=== PATIENT | male | born 1975 | race Two or more races ===

== ENCOUNTER 2023-01-03 16:45 | Inpatient (IN) | payer MEDICAID, OTHER ==
[~2023-01-03] VITALS: Ht 175.3 cm; Wt 84.0 kg
[2023-01-03 18:32] LABS: Eosinophils # (auto) 0 10 ^3/uL (0-0.8); Eosinophils % (auto) 0.4 % (0.0-7.0); Hemoglobin 12.3 g/dL (13.5-17.5); Lymphocytes # (auto) 1.1 10 ^3/uL (0.4-5.4); Monocytes # (auto) 0.4 10 ^3/uL (0-1.3)
[2023-01-03 18:34] LABS: Basophils # (auto) 0.1 10 ^3/uL (0-0.2); Basophils % (auto) 2.1 % (0.0-2.0); Hematocrit 35.8 % (41.0-53.0); Lymphocytes % (auto) 15.5 % (10.0-50.0); Mean Corpuscular Hemoglobin 35.5 pg (28.0-32.0); Mean Corpuscular Hgb Conc. 34.5 g/dL (32.0-36.0); Mean Corpuscular Volume 103.1 fL (80.0-100.0); Monocytes % (auto) 6.3 % (0.0-12.0); Neutrophils # (auto) 5.2 10 ^3/uL (1.6-8.6); Neutrophils % (auto) 75.7 % (37.0-80.0); Red Blood Cells 3.47 10^6/uL (4.5-5.90); White Blood Cell 6.8 10^3/uL (4.4-10.8)
[2023-01-03 18:52] LABS: Alanine Aminotransferase 94 U/L (7-40); Albumin 3.8 g/dL (3.2-4.8); Alkaline Phosphatase 174 U/L (46-116); Anion Gap 12 (5-15); Aspartate Aminotransferase 260 U/L (13-40); BUN/Creatinine Ratio 13.7 (10.0-20.0); Blood Urea Nitrogen 10 mg/dL (9-23); Carbon Dioxide 28 mmol/L (20-30); Chloride 104 mmol/L (98-107); Glucose 99 mg/dL (74-106); Potassium 2.9 mmol/L (3.5-5.1); Sodium 144 mmol/L (136-145)
[2023-01-03 18:53] LABS: Bilirubin, Total 1.5 mg/dL (0.2-1.0); Total Protein 6.6 g/dL (5.7-8.2)
[2023-01-03 19:22] LABS: Lactic Acid w/Reflex 4.3 mmol/L (0.4-2.0)
[2023-01-03 19:32] VITALS: PULSE 108; RESP 20; O2SAT 98
[2023-01-03] MEDS ORDERED: LACTATED RINGER'S 1,000 ML IV ONE (20:15)
[2023-01-03] MEDS ORDERED: LORazepam 2MG/ML-1ML VIAL IV ONE ×2 (21:30→21:45)
[2023-01-03] MEDS ORDERED: POTASSIUM EFFERVESENT TAB 25 MEQ PO ONE (21:30)
[2023-01-03 22:47] LABS: Amphetamine Screen, Urine Neg (NEGATIVE); Barbiturate Scree,Urine Neg (NEGATIVE); Benzodiazephine Screen, Urine Neg (NEGATIVE); Cannabinoid Screen, Urine Neg (NEGATIVE); Cocaine Screen, Urine Neg (NEGATIVE); Opiate Scree,Urine Neg (NEGATIVE); Phencyclidine Screen, Urine Neg (NEGATIVE)
[2023-01-03 22:55] LABS: Lactic Acid w/Reflex 4.6 mmol/L (0.4-2.0)
[2023-01-03] MEDS ORDERED: hydrALAZINE HCL 20 MG/ML VL IV ONE (23:00)
[2023-01-04] MEDS ORDERED: hydrALAZINE HCL 20 MG/ML VL IV ONE ×2 (00:15)
[2023-01-04 00:53] LABS: Lactic Acid w/Reflex 4.5 mmol/L (0.4-2.0)
[2023-01-04] MEDS ORDERED: MIDAZOLAM HCL 5 MG/ML-1ML VIAL IV ONE (01:15)
[2023-01-04] MEDS ORDERED: LORazepam 2MG/ML-1ML VIAL IV ONE (02:45)
[2023-01-04] MEDS: LORazepam 2MG/ML-1ML VIAL IV SCH ×6 (02:45→22:18)
[2023-01-04] MEDS ORDERED: ACETAMINOPHEN 325 MG TAB PO PRN (03:45)
[2023-01-04] MEDS ORDERED: chlordiazePOXIDE HCL 25 MG CAP PO PRN (03:45)
[2023-01-04] MEDS ORDERED: MORPHINE SULFATE INJ 2 MG/ml SYRG IV PRN (03:45)
[2023-01-04] MEDS ORDERED: ONDANSETRON HCL 4 MG/2 ML VIAL IV PRN (03:45)
[2023-01-04] MEDS ORDERED: NITROGLYCERIN 0.4 MG SL TAB SL PRN (03:45)
[2023-01-04] MEDS: LORazepam 2MG/ML-1ML VIAL IV PRN ×2 (05:33→10:08)
[2023-01-04] MEDS: FUROSEMIDE 40 MG TAB PO SCH ×2 (05:48→18:23)
[2023-01-04] MEDS: LABETALOL HCL 5 MG/ML 4ML SYRINGE IV PRN ×2 (07:04→08:45)
[2023-01-04 07:31] VITALS: PULSE 92; RESP 15; O2SAT 95
[2023-01-04] MEDS ORDERED: amLODIPine BESYLATE 5 MG TAB PO SCH (10:00)
[2023-01-04] MEDS: CARVEDILOL 12.5 MG TAB PO SCH ×2 (10:08→22:19)
[2023-01-04] MEDS: SPIRONOLACTONE 25 MG TAB PO SCH (10:08)
[2023-01-04] MEDS ORDERED: PANTOPRAZOLE 40 MG/10 ML VIAL INJ IV ONE (11:30)
[2023-01-04] MEDS ORDERED: cloNIDine HCL 0.1 MG TAB PO PRN (11:30)
[2023-01-04] MEDS ORDERED: FOLIC ACID 1 MG, MULTIPLE VITAMIN 10 ML, MAGNESIUM SULF SDV 50% 8 MEQ, THIAMINE INJ 100... INJ SCH ×5 (12:00)
[2023-01-04 12:11] LABS: Eosinophils # (auto) 0 10 ^3/uL (0-0.8); Eosinophils % (auto) 0.2 % (0.0-7.0); Hemoglobin 11.4 g/dL (13.5-17.5); Mean Corpuscular Hemoglobin 35.2 pg (28.0-32.0); Nucleated Red Blood Cells % 0.1 %; Red Blood Cells 3.24 10^6/uL (4.5-5.90); White Blood Cell 6.4 10^3/uL (4.4-10.8)
[2023-01-04 12:12] LABS: Basophils # (auto) 0 10 ^3/uL (0-0.2); Basophils % (auto) 0.7 % (0.0-2.0); Hematocrit 33.3 % (41.0-53.0); Lymphocytes # (auto) 0.6 10 ^3/uL (0.4-5.4); Lymphocytes % (auto) 8.9 % (10.0-50.0); Mean Corpuscular Hgb Conc. 34.3 g/dL (32.0-36.0); Mean Corpuscular Volume 102.7 fL (80.0-100.0); Monocytes # (auto) 0.6 10 ^3/uL (0-1.3); Monocytes % (auto) 8.6 % (0.0-12.0); Neutrophils # (auto) 5.2 10 ^3/uL (1.6-8.6); Neutrophils % (auto) 81.6 % (37.0-80.0); Red Cell Distribution Width 14.5 % (11.8-14.3)
[2023-01-04 12:24] LABS: Alanine Aminotransferase 72 U/L (7-40); Albumin 3.5 g/dL (3.2-4.8); Alkaline Phosphatase 141 U/L (46-116); Anion Gap 8 (5-15); Aspartate Aminotransferase 189 U/L (13-40); BUN/Creatinine Ratio 7.2 (10.0-20.0); Bilirubin, Total 2.5 mg/dL (0.2-1.0); Blood Urea Nitrogen 5 mg/dL (9-23); Calcium 7.4 mg/dL (8.5-10.1); Carbon Dioxide 31 mmol/L (20-30); Chloride 95 mmol/L (98-107); Glucose 177 mg/dL (74-106); Total Protein 6.1 g/dL (5.7-8.2)
[2023-01-04 12:35] LABS: Sodium 134 mmol/L (136-145)
[2023-01-04 12:43] LABS: Magnesium 0.9 mg/dL (1.6-2.6)
[2023-01-04] MEDS ORDERED: POTASSIUM CHL 20 Meq TABLET PO ONE (13:00)
[2023-01-04] MEDS: MAGNESIUM SULFATE 1GM/100ML 100 ML IV SCH ×3 (13:12→15:35)
[2023-01-04] MEDS: POTASSIUM CHL 20MEQ/100ML 100 ML IV SCH ×3 (13:12→22:24)
[2023-01-04] MEDS ORDERED: NICOTINE 21MG/24 HR TOPICAL PATCH TD ONE (15:45)
[2023-01-04 18:34] VITALS: BP 164/104; PULSE 101; RESP 19; O2SAT 96
[2023-01-04 20:00] VITALS: PULSE 91; PULSE 97; RESP 20; O2SAT 96
[2023-01-04] MEDS ORDERED: POTASSIUM CHL 20MEQ/100ML 100 ML IV SCH (21:45)
[2023-01-04 22:00] VITALS: BP 161/116; PULSE 97; RESP 20; TEMP 98.1; O2SAT 96
[2023-01-04] MEDS ORDERED: ATORVASTATIN 20 MG TAB PO SCH (22:00)
[2023-01-05] MEDS: LORazepam 2MG/ML-1ML VIAL IV SCH ×3 (03:39→09:51)
[2023-01-05 05:00] VITALS: BP 170/118; PULSE 73; RESP 20; TEMP 98.1; O2SAT 95
[2023-01-05 05:46] LABS: Basophils # (auto) 0.1 10 ^3/uL (0-0.2); Eosinophils # (auto) 0.1 10 ^3/uL (0-0.8); Eosinophils % (auto) 1.9 % (0.0-7.0); Hemoglobin 11.9 g/dL (13.5-17.5); Monocytes # (auto) 0.5 10 ^3/uL (0-1.3)
[2023-01-05 05:48] LABS: Basophils % (auto) 0.9 % (0.0-2.0); Lymphocytes # (auto) 1.2 10 ^3/uL (0.4-5.4); Lymphocytes % (auto) 16.9 % (10.0-50.0); Mean Corpuscular Hemoglobin 35.4 pg (28.0-32.0); Mean Corpuscular Volume 104.1 fL (80.0-100.0); Monocytes % (auto) 7.1 % (0.0-12.0); Neutrophils # (auto) 5.2 10 ^3/uL (1.6-8.6); Neutrophils % (auto) 73.2 % (37.0-80.0); Nucleated Red Blood Cells % 0.2 %; Red Blood Cells 3.37 10^6/uL (4.5-5.90); Red Cell Distribution Width 14.1 % (11.8-14.3)
[2023-01-05 05:54] LABS: Alanine Aminotransferase 62 U/L (7-40); Albumin 3.6 g/dL (3.2-4.8); Alkaline Phosphatase 144 U/L (46-116); Anion Gap 8 (5-15); Aspartate Aminotransferase 142 U/L (13-40); BUN/Creatinine Ratio 7.4 (10.0-20.0); Blood Urea Nitrogen 5 mg/dL (9-23); Calcium 7.8 mg/dL (8.7-10.4); Carbon Dioxide 29 mmol/L (20-30); Chloride 101 mmol/L (98-107); Glucose 90 mg/dL (74-106); Magnesium 1.7 mg/dL (1.6-2.6); Potassium 2.8 mmol/L (3.5-5.1); Sodium 138 mmol/L (136-145)
[2023-01-05 05:55] LABS: Bilirubin, Total 2.8 mg/dL (0.2-1.0); Total Protein 6.3 g/dL (5.7-8.2)
[2023-01-05] MEDS: FUROSEMIDE 40 MG TAB PO SCH (06:45)
[2023-01-05 08:00] VITALS: PULSE 70; PULSE 90; RESP 18; O2SAT 95
[2023-01-05] MEDS: SPIRONOLACTONE 25 MG TAB PO SCH (09:50)
[2023-01-05] MEDS ORDERED: CARVEDILOL 12.5 MG TAB PO SCH (10:00)
[2023-01-05] MEDS ORDERED: POTASSIUM CHL 20 Meq TABLET PO ONE (10:00)
[2023-01-05] MEDS ORDERED: NICOTINE 21MG/24 HR TOPICAL PATCH TD SCH (10:00)
[2023-01-05] MEDS ORDERED: MAGNESIUM SULFATE 1GM/100ML 100 ML IV SCH (10:00)
[2023-01-05] MEDS ORDERED: PANTOPRAZOLE 40 MG/10 ML VIAL INJ IV SCH (10:00)
[2023-01-05] MEDS ORDERED: POTASSIUM CHL 20 Meq TABLET PO SCH (10:00)
[2023-01-05] MEDS ORDERED: POTASSIUM CHLORIDE 60 MEQ, LIDOCAINE 1% (LOCAL ANESTH.) 6 ML in SODIUM CHL 0.9% 500 ML IV ONE (10:00)
[2023-01-06 00:57] LABS: Potassium 2.4 mmol/L (3.5-5.1)
[2023-01-06] MEDS ORDERED: FUROSEMIDE 40 MG TAB PO SCH (07:00)
== END 2023-01-05 11:45 | disposition left against medical advice (07) | DRG 194 ==
LOC: ER 16:45 → EDBD 16:45 → TELE 01-04 03:45 → TELE-CENTR 01-04 18:10
PROVIDERS: ADMIT Nurse Practitioner; ATTEND Internal Medicine
DX: I11.0 Hypertensive heart disease with heart failure (principal); E87.20 Acidosis, unspecified; E86.0 Dehydration; K70.9 Alcoholic liver disease, unspecified; I16.1 Hypertensive emergency; F10.129 Alcohol abuse with intoxication, unspecified; I50.41 Acute combined systolic (congestive) and diastolic (congestive) heart failure; F10.139 Alcohol abuse with withdrawal, unspecified; E87.6 Hypokalemia; E78.5 Hyperlipidemia, unspecified; Z53.29 Procedure and treatment not carried out because of patient's decision for other reasons; E83.42 Hypomagnesemia; Y90.8 Blood alcohol level of 240 mg/100 ml or more; Z72.0 Tobacco use; Z91.199 Patient's noncompliance with other medical treatment and regimen due to unspecified reason
CPT/HCPCS: 36415; 71045; 80053; 80307; 80320; 83605; 83735; 83880; 84484; 85025; 93005; 93306; C9113; G0378; J2001; J2250; J3480; J3490